=== PATIENT | female | born 1965 | race American Indian/Alaskan Native ===

== ENCOUNTER 2017-12-30 01:23 | Emergency (ER) | payer MEDICAID ==
[2017-12-30 02:45] VITALS: BP 147/91
[2017-12-30] MEDS ORDERED: PERCOCET 5/325 PO ONE (06:27)
[2017-12-30] MEDS ORDERED: VEETIDS PO ONE (06:27)
--- NOTE | 2017-12-30 06:36 | Emergency Department Report ---
ED ENT HPI - General Chief complaint: Dental/Oral Stated complaint: FACE SWELLING Time Seen by Provider: 12/30/17 06:26 Source: patient Mode of arrival: Ambulatory Limitations: No Limitations - History of Present Illness Initial comments: 52-year-old -Citizen Of [place] female comes in for swelling to the left side of face upon awakening yesterday morning. Patient denies any new medication change in medication no new detergents or environmental changes. Patient does report that she had a broken tooth that happened last year not aware that it has given her any recent problems. Patient reports that she has no throat swelling but does report pain 10 out of 10. Patient has a past medical history of hypertension. MD complaint: tooth pain -: days(s) (2) Location: tooth # (17) Consistency: constant Improves with: none Worsens with: eating Context- Dental: poor dental care Associated Symptoms: gum swelling, toothache. denies: fever, cough, pain with swallowing, sore throat - Related Data Previous Rx's Medication Instructions Recorded Last Taken Type HYDROcodone/ACETAMINOPHEN [Glorieta 1 each PO Q6H #12 tablet 12/30/17 Unknown Rx 7.5-325 Tablet] Ibuprofen [Motrin 600 MG tab] 600 mg PO Q8H PRN #30 tablet 12/30/17 Unknown Rx Penicillin Vk [Veetids TAB] 500 mg PO BID #20 tablet 12/30/17 Unknown Rx Allergies Allergy/AdvReac Type Severity Reaction Status Date / Time No Known Allergies Allergy Verified 12/30/17 06:28 ED Dental HPI - General Chief complaint: Dental/Oral Stated complaint: FACE SWELLING Time Seen by Provider: 12/30/17 06:26 Source: patient Mode of arrival: Ambulatory Limitations: No Limitations - Related Data Previous Rx's Medication Instructions Recorded Last Taken Type HYDROcodone/ACETAMINOPHEN [Glorieta 1 each PO Q6H #12 tablet 12/30/17 Unknown Rx 7.5-325 Tablet] Ibuprofen [Motrin 600 MG tab] 600 mg PO Q8H PRN #30 tablet 12/30/17 Unknown Rx Penicillin Vk [Veetids TAB] 500 mg PO BID #20 tablet 12/30/17 Unknown Rx Allergies Allergy/AdvReac Type Severity Reaction Status Date / Time No Known Allergies Allergy Verified 12/30/17 06:28 ED Review of Systems ROS: Stated complaint: FACE SWELLING Other details as noted in HPI Constitutional: denies: chills, fever ENT: dental pain Respiratory: denies: cough, shortness of breath, wheezing Cardiovascular: denies: chest pain, palpitations Endocrine: no symptoms reported ED Past Medical Hx - Past Medical History Previous Medical History?: Yes Hx Hypertension: Yes - Surgical History Past Surgical History?: No - Social History Smoking Status: Current Every Day Smoker Substance Use Type: Alcohol - Medications Home Medications: Home Medications Medication Instructions Recorded Confirmed Last Taken Type HYDROcodone/ACETAMINOPHEN [Glorieta 1 each PO Q6H #12 tablet 12/30/17 Unknown Rx 7.5-325 Tablet] Ibuprofen [Motrin 600 MG tab] 600 mg PO Q8H PRN #30 tablet 12/30/17 Unknown Rx Penicillin Vk [Veetids TAB] 500 mg PO BID #20 tablet 12/30/17 Unknown Rx ED Physical Exam - General Limitations: No Limitations General appearance: alert, in no apparent distress, other (Leiva pain) - Expanded ENT Exam Expanded Teeth exam: Present: gingival enlargement, other (broken tooth #7 to the gum purulent discharge from gum) Throat exam: Positive: other (left side of jaw swollen tender) - Respiratory Respiratory exam: Present: normal lung sounds bilaterally. Absent: respiratory distress - Cardiovascular Cardiovascular Exam: Present: regular rate, normal rhythm. Absent: systolic murmur, diastolic murmur, rubs, gallop ED Course Vital Signs 12/30/17 02:42 Temperature 100.2 F H Pulse Rate 98 H Respiratory 18 Rate Blood Pressure 147/91 O2 Sat by Pulse 99 Oximetry ED Medical Decision Making - Medical Decision Making Patient has been evaluated by this provider fast track. Examination of patient's mouth shows that she has any abscess to her left lower jaw with gingiva enlargement and purulent discharge from the gum or tooth #17 and 18 would be sitting at which are not there. Order placed for Pen-Vee and Percocet to be given to patient and emergency room. Discussed the patient we will discharge her on ibuprofen, Pen-Vee 500 mg po bid times 10 days and Glorieta 5/325 every 6 hours when necessary for pain dispense 12. Patient needs to follow-up with the dentist in 1-2 days. For reevaluation. Patient verbalized understanding Informed Dr. Howard of my concerns of her abscess. Dr. Howard came over to evaluate patient as well he recommends a CBC CMP and a CT of the facial with contrast concern for mandibular swelling rule out any osteomyelitis. Special since patient has a fever that started to develop. Critical care attestation.: If time is entered above; I have spent that time in minutes in the direct care of this critically ill patient, excluding procedure time. ED Disposition Clinical Impression: Abscess of pulp of tooth Disposition: DC TO HOME OR SELFCARE Is pt being admited?: No Does the pt Need Aspirin: No Condition: Stable Instructions: Dental Abscess (ED) Additional Instructions: Please complete antibiotics as prescribed. Please follow-up with the dentist in 1-2 days. Please do not operate heavy machinery while taking the Glorieta for pain. Prescriptions: HYDROcodone/ACETAMINOPHEN [Glorieta 7.5-325 Tablet] 1 each PO Q6H #12 tablet Ibuprofen [Motrin 600 MG tab] 600 mg PO Q8H PRN #30 tablet PRN Reason: Pain Penicillin Vk [Veetids TAB] 500 mg PO BID #20 tablet Referrals: PRIMARY CARE, [Primary Care Provider] - 3-5 Days Forms: AMA Form, Work/School Release Form(ED)
[2017-12-30 06:59] LABS: Basophils # (Auto) 0.1 K/mm3 (0.0-0.1); Basophils % (Auto) 0.7 % (0.0-1.8); Eosinophils % (Auto) 0.3 % (0.0-4.3); Hematocrit 36.9 % (30.3-42.9); Hemoglobin 12.3 gm/dl (10.1-14.3); Lymphocytes % (Auto) 32.1 % (13.4-35.0); Mean Corpuscular HGB Conc 33 % (30-34); Mean Corpuscular Hemoglobin 29 pg (28-32); Mean Corpuscular Volume 88 fl (79-97); Monocytes # (Auto) 0.6 K/mm3 (0.0-0.8); Platelet Count 264 K/mm3 (140-440); Red Blood Count 4.18 M/mm3 (3.65-5.03); Red Cell Distribution Width 15.2 % (13.2-15.2)
[2017-12-30 07:20] LABS: Alanine Aminotransferase 9 units/L (7-56); Albumin 3.8 g/dL (3.9-5); BUN/Creatinine Ratio 13; Blood Urea Nitrogen 5 mg/dL (7-17); Calcium 9.1 mg/dL (8.4-10.2); Hemolysis Index 6
--- NOTE | 2017-12-30 08:18 | Cat Scan Report ---
CT FACIAL BONES WITH CONTRAST: HISTORY: Significant submandibular swelling, pain. TECHNIQUE: Helical CT images following IV contrast with sagittal and coronal CT reformations. FINDINGS: There is moderate to severe soft tissue swelling and mild fat stranding along the body of the left mandible. There is no discrete abscess, soft tissue gas or foreign body identified. There appear to be adjacent dental caries and possible 5 mm periapical tooth abscess involving the left posterior mandibular molar. This inflammation may arise from poor dentition. Please correlate with the patient. There are reactive left submandibular and left jugular lymph nodes measuring up to 1.3 cm. No bulky adenopathy or necrotic lymph nodes. The salivary glands, parapharyngeal soft tissues and visualized laryngeal tissues are unremarkable. Moderate mucosal thickening is noted in the bilateral ethmoid air cells and inferior left maxillary sinus which appears chronic. The remaining visualized sinuses and mastoid air cells are adequately aerated. There are moderate calcific plaques in both carotid bulbs but no hemodynamically significant stenosis is appreciated. The bony structures are intact. Mild to moderate cervical spondylosis is noted. IMPRESSION: Nonspecific left facial soft tissue swelling. No abscess identified. This may arise from poor dentition as outlined above. Please correlate with the patient. Reactive left cervical and left submandibular lymph nodes. Chronic sinus disease. Cervical spondylosis. Mild atherosclerotic plaques at the carotid bifurcations but no suggestive of hemodynamically significant stenosis.
== END 2017-12-30 08:25 | disposition home or self-care (01) ==
LOC: ED 01:23
DX: K04.7 Periapical abscess without sinus (principal); I10 Essential (primary) hypertension; F17.200 Nicotine dependence, unspecified, uncomplicated
CPT/HCPCS: 36415; 70487; 80053; 85025; 99284; Q9967